=== PATIENT | female | born 1995 | race Caucasian/White ===

== ENCOUNTER 2020-04-13 22:33 | Observation (INO) ==
[2020-04-13 23:29] LABS: Basophils % 0.2 %; Eosinophils # 0.1 K/mcL (0.0-0.6); Eosinophils % 0.6 %; Hematocrit 37.2 % (35.3-44.9); Hemoglobin 12.5 g/dL (11.5-15.4); Immature Granulocytes % 0.4 % (0-4); Lymphocytes # 2.3 K/mcL (0.6-4.6); Lymphocytes % 20.3 %; Mean Corpuscular HGB Conc 33.6 g/dL (31.6-35.5); Mean Corpuscular Hemoglobin 29.2 pg (28.0-33.3); Mean Corpuscular Volume 86.9 fL (83.0-100.0); Mean Platelet Volume 9.6 fL (9.4-12.4); Monocytes # 0.7 K/mcL (0.0-1.3); Monocytes % 6.3 %; Platelet Count 313 K/mcL (140-400); Red Blood Count 4.28 M/mcL (3.82-4.97); Red Cell Distribution Width 12.5 % (11.5-14.5); Segmented Neutrophils % 72.2 %; White Blood Count 11.1 K/mcL (4.3-11.1)
[2020-04-14] MEDS ORDERED: *HR* Promethazine 25 MG/ML VIAL IVP ONE (00:15)
[2020-04-14 01:02] LABS: Alanine Aminotransferase 15 Units/L (7-52); Albumin 4.2 g/dL (3.5-5.7); Alkaline Phosphatase 82 Units/L (34-104); Aspartate Amino Transferase 16 Units/L (13-39); BUN/Creatinine Ratio 10 (6-26); Bilirubin,Direct 0.1 mg/dL (0.0-0.2); Bilirubin,Indirect 0.3 mg/dL (0.0-1.0); Bilirubin,Total 0.4 mg/dL (0.3-1.0); Blood Urea Nitrogen 6 mg/dL (6-20); Calcium 9.2 mg/dL (8.6-10.3); Carbon Dioxide 26 mEq/L (23-29); Chloride 103 mEq/L (98-107); Glucose 105 mg/dL (70-105); Lipase 14 Units/L (11-82); Osmolality,Calculated 280 (280-300); Potassium 3.6 mEq/L (3.5-5.1); Sodium 136 mEq/L (136-145); eGFR For African Americans > 60 (> 60); eGFR For Non-African Americans > 60 (> 60)
[2020-04-14 01:16] LABS: Albumin/Globulin Ratio 1.6 (1.1-2.2); Globulin 2.7 g/dL (2.4-3.5); Total Protein 6.9 g/dL (6.4-8.9)
[2020-04-14] MEDS ORDERED: 0.9 % Sodium Chloride 1,000 ML ONE (03:54)
[2020-04-14] MEDS ORDERED: *HR* Rocuronium Bromide 50 MG/5 ML VIAL ONE (04:01)
[2020-04-14] MEDS ORDERED: *HR* Succinylcholine 200 MG/10 ML VIAL IVP ONE (04:01)
[2020-04-14] MEDS ORDERED: Lidocaine -MPF 2% 2 ML VIAL ONE (04:01)
[2020-04-14] MEDS ORDERED: Lidocaine HCL 4 ML Topical Solution (Laryng-O-Jet Kit Sterile Pak) TP ONE (04:01)
[2020-04-14] MEDS ORDERED: *HR* FentaNYL (PF) 100 MCG/2 ML VIAL ONE (04:01)
[2020-04-14] MEDS ORDERED: Bupivacaine-MPF 0.25% 10 ML VIAL ONE (04:02)
[2020-04-14] MEDS ORDERED: *HR* Propofol 200 MG/20 ML VIAL IVP ONE (04:02)
[2020-04-14] MEDS ORDERED: *HR* Belladonna Alkaloids/Opium 30 MG RECTAL SUPPOSITORY RC ONE (04:02)
[2020-04-14] MEDS ORDERED: Ondansetron 4 MG/2 ML VIAL ONE (04:04)
[2020-04-14] MEDS ORDERED: Dexamethasone 4 MG/ML VIAL ONE (04:04)
[2020-04-14] MEDS ORDERED: *HR* Promethazine 25 MG/ML VIAL IVP PRN (04:21)
[2020-04-14] MEDS ORDERED: *HR* Meperidine 25 MG/ML SYRINGE IVP PRN (04:21)
[2020-04-14] MEDS ORDERED: *HR* HYDROmorphone PF 0.5 MG/0.5 ML SYRINGE IVP PRN (04:21)
[2020-04-14] MEDS ORDERED: Ondansetron 4 MG/2 ML VIAL IVP ONE (04:21)
[2020-04-14] MEDS ORDERED: *HR* OxyCODONE Immed Rel 5 MG TABLET PO PRN (04:21)
[2020-04-14] MEDS ORDERED: Acetaminophen IV 1,000 MG/100 ML INFUS..BTL ONE (04:49)
[2020-04-14] MEDS ORDERED: *HR* Midazolam HCl 2 MG/2 ML VIAL ONE (04:52)
[2020-04-14] MEDS ORDERED: *HR* HYDROMORPHONE 2 MG/ML VIAL ONE (06:07)
[2020-04-14] MEDS ORDERED: Neostigmine Methylsulfate 3 MG/3 ML SYRINGE ONE (07:17)
[2020-04-14] MEDS ORDERED: *HR* OxyCODONE/APAP 5/325 TABLET PO ONE (08:45)
== END 2020-04-14 10:51 | disposition home or self-care (01) ==
LOC: 1NENUPED 22:33 → EMEROOARM 22:33 → 1NENUPED 04-14 04:10
PROVIDERS: ADMIT Obstetrics & Gynecology; ATTEND Obstetrics & Gynecology